=== PATIENT | female | born 1950 | race Caucasian/White ===

== ENCOUNTER 2022-12-31 07:24 | Observation (INO) ==
--- NOTE | 2022-12-03 11:20 | PAT Medication Instructions ---
Medication Instructions Date of Service December 03, 2022 Home Medications Medication Instructions Recorded diclofenac sodium 75 mg 75 mg PO BID PRN pain #60 tabs 10/30/22 tablet,delayed release diclofenac sodium 75 mg tablet,delayed release 75 mg PO BID PRN pain levothyroxine 88 mcg tablet (Synthroid) 88 mcg PO QAM ASK your surgeon for instructions diclofenac sodium 75 mg tablet,delayed release 75 mg PO BID PRN pain Take morning of surgery With a small sip of water, OTHERWISE NOTHING TO EAT OR DRINK AFTER MIDNIGHT: levothyroxine 88 mcg tablet (Synthroid) 88 mcg PO QAM Other Notes If you have any questions please call us at [phone] or [phone] or [phone] or [phone]
--- NOTE | 2022-12-04 14:29 | Anesthesiology Consultation ---
Date of Service December 04, 2022 Assessment & Plan (1) Encounter for pre-operative examination: - awaiting cardiology pre-operative evaluation, Dr. Ranjith Cardoza PA physicians group and carotid, Holter monitor reports. - Case discussed in detail with Dr. Daniel who advised patient will need cardiology pre-operative evaluation. Surgeon's office made aware. - cardiology office visit 09/04/22: "...episode of syncope in 01/2022...vision was blurry before this happened..."out: for a couple minutes...could not get a pulse during episode...felt weak after the episode the next day...declines stress test...declines week longer monitor at this time...repeat echo in 1 year..." - Outpatient joint assessment: Patient is currently scheduled for inpatient pathway. If re-evaluated and patient/surgeon requests outpatient pathway, patient is not recommended candidate for outpatient joint program from anesthesia standpoint. Chart Review Chart Review: Pending: Refer to Additional Notes / Consult section and Patient seen in Pre Admission Testing Teaching & Discussion Pre-Anesthesia Teaching/Discussion Notes: Instructed NPO after midnight before surgery, except medications with 15 cc of water. Medication instructions provided according to the PAT guidelines. History Surgery Operation Date: 12/31/22 09:20 Proposed Procedures p Left Anterior Total Hip Arthroplasty - Irineo Byers DO Height/Weight Height: 5 ft 4 in Weight: 61.1 kg Allergies Allergy/AdvReac Type Severity Reaction Status Date / Time No Known Allergies Allergy Verified 11/28/22 11:06 Medications Home Medications Medication Instructions Recorded Confirmed Last Taken diclofenac sodium 75 mg 75 mg PO BID PRN pain #60 tabs 10/30/22 11/28/22 Unknown tablet,delayed release levothyroxine 88 mcg tablet 88 mcg PO QAM 11/28/22 11/28/22 Unknown (Synthroid) 3-in-1 Commode #1 ea 12/04/22 12/04/22 Unknown diclofenac sodium 75 mg 75 mg PO BID #60 tabs 12/04/22 12/04/22 Unknown tablet,delayed release Past Medical History Medical History (Updated 12/04/22 @ 15:12 by Rosa Lux PA-C) History of pelvic fracture Remote hx 9+ years ago, no surgery > "healed" Hx of migraines during efraín-menopause Hx of syncope 01/2022 Hx of thyroid cancer Dx 2007, s/p total thyroidectomy + Iodine tx Hypothyroidism Osteopenia Pulmonary hypertension mild with RVSP 41 mmHg per 2022 echo Patient denies h/o stroke, seizures, heart attack, heart failure, DM, HTN, blood clots/DVTs or blood transfusions. Exercise / Class Metabolic Activity II 4-5 Yardwork/Stairs/Walk up hill (denies chest discomfort or shortness of breath with 1 FOS, ambulates with cane) Past Surgical History Surgical History History of esophagogastroduodenoscopy (EGD) Hx of bilateral cataract extraction Hx of colonoscopy Hx of oral surgery dental implant x1 Hx of tonsillectomy Hx of total thyroidectomy 2007 Hx of tubal ligation Nausea after anesthesia Past Anesthesia History No Hx of Anesthesia Complications and No Family Hx of Anesthesia Complications History of PONV History of PONV (denies needing scop patch, states does well with IV pre-dosing) and Hx of Motion Sickness Social History Smoking Status: Former smoker Do You Dip or Chew Tobacco: No Smoking End Date: 45 years ago-social smoker Hx Alcohol Use: Yes alcohol intake frequency: holidays/special occasions only Hx Substance Use: No substance use type: does not use Review of Systems Snoring, denies witnessed apneas. Patient denies chest pain, shortness of breath, dyspnea on exertion, reflux, fever, chills, cough, wheezing, presyncope, or palpitations. Physical Exam Vital Signs Vitals BP 109/74 P 65 TEMP 98.1 SP02 96% on RA RESP 18 Physical Patient resting comfortably in chair in no acute distress, alert and oriented, responding appropriately throughout visit Full cervical extension range of motion without pain TMD 3.5 finger breadths Mallampati Score 3 Dentition: implant-left lower side and several caps/crowns, denies chipped or loose teeth, or bridges Lungs: normal respiratory effort. Good air movement, clear throughout to auscultation, no adventitious breath sounds Cardiac: regular rate and rhythm, no murmurs noted Carotid arteries: negative bruit bilat Lab Results Anesthesia Preop Results Results Anesthesia Widget: WBC 5.17 K/ul (4.8-10.8) 12/04/22 Hgb 12.1 g/dl (12.0-16.0) 12/04/22 Hct 36.3 % (37.0-47.0) L 12/04/22 Plt 144 K/uL (130-400) 12/04/22 Na 139 mmol/L (136-145) 12/04/22 K 5.0 mmol/L (3.5-5.1) 12/04/22 Cl 104 mmol/L (98-107) 12/04/22 CO2 32 mmol/L (21-32) 12/04/22 BUN 30 mg/dl (6-23) H 12/04/22 Creat 0.72 mg/dl (0.6-1.2) 12/04/22 Glucose Level 95 mg/dl (70-99(Fasting)) 12/04/22 PT 11.2 Seconds (9.0-12.0) 12/04/22 PTT 28.9 Seconds (21.0-31.0) 12/04/22 INR 1.0 (0.9-1.1) 12/04/22 HA1c 5.5 % (4.5-5.6) 10/12/22 Blood Type A Positive 12/04/22 Antibody Screen NEGATIVE 12/04/22 Testing Electrocardiogram Date: 03/02/22 NSR, rate 65 bpm Chest X-Ray Date: 12/04/22 No acute cardiopulmonary findings Echocardiogram Date: 08/23/22 EF 55-60% Normal LV wall motion Mildly dilated RA Mild aortic regurgitation Mild tricuspid regurgitation Mild pulmonary hypertension RVSP 41 mmHg Mild pulmonic regurgitation Mildly dilated ascending aorta
[~2022-12-31 07:24] MED LIST: ACETAMINOPHEN 500 MG TAB PO SCH; BUPIVACAINE 0.5 % 5 MG/1 ML PF 10ML VIAL ONE; FAMOTIDINE 20 MG TAB PO SCH; GABAPENTIN 300 MG CAP PO SCH; LR 500ML BOLUS, THEN 15ML/HR IV SCH; LR 60ML/HR IV SCH; METOCLOPRAMIDE HCL 10 MG TABLET PO SCH; MIDAZOLAM HCL 1 MG/ML 2ML VIAL ONE; ORTHO JOINT MIX INFIL SCH; TRANEXAMIC ACID 1,000 MG **IV Intra-op IV SCH; TRANEXAMIC ACID 1,000 MG **IV Pre-op IV SCH; ceFAZolin 2000MG 2,000 MG/15 ML SYR IV SCH; dexAMETHasone**PF** 10 MG/ML VIAL IV SCH
[2022-12-31] MEDS ORDERED: ONDANSETRON INJ 2 MG/ML 2 ML VIAL ONE (08:07)
[2022-12-31] MEDS ORDERED: LIDOCAINE 2% 2 ML VIAL/AMP(20MG/ML) INFIL ONE (08:07)
[2022-12-31] MEDS ORDERED: KETOROLAC 30 MG/ML VIAL ONE (08:07)
[2022-12-31] MEDS ORDERED: PROPOFOL IV EMULSION 10 MG/ML 20 ML VIAL IV ONE (08:07)
--- NOTE | 2022-12-31 08:07 | History & Physical Bridge Note ---
Date of Service December 31, 2022 History & Physical Bridge Note I have examined the patient, reviewed the History & Physical and in the interval since the performance of the History & Physical I have noted the following changes of clinical significance: no changes noted
[2022-12-31] MEDS ORDERED: ORTHO JOINT ANESTHETIC ONE (08:32)
[2022-12-31] MEDS ORDERED: ONDANSETRON INJ 2 MG/ML 2 ML VIAL IV PRN ×2 (08:37→14:02)
[2022-12-31] MEDS ORDERED: ATROPINE SULFATE 0.1 MG/ML 10ML SYR IV PRN (08:37)
[2022-12-31] MEDS ORDERED: ePHEDrine sulfate 50 MG/ML AMP IV PRN (08:37)
[2022-12-31] MEDS ORDERED: fentaNYL citrate PF 100 MCG/2 ML VIAL IV PRN (08:37)
--- NOTE | 2022-12-31 10:17 | Operative Report ---
PG Post Operative Report Pre & Post Diagnosis Operation Date: 12/31/22 09:00 Pre-Op Diagnosis: Left Hip Degenerative Joint Disease Post-Op Diagnosis: Left Hip Degenerative Joint Disease I identified the patient and participated in the time-out.: Yes Procedure Operation Date: 12/31/22 09:00 Actual Procedures p Left Anterior Total Hip Arthroplasty, Uncemented(Left) - Irineo Byers DO Surgeon Irineo Byers DO Corporate Staff [employer]ant Irineo Mcdonough PA-C Estimated Blood Loss 250 Findings Consistent with Post-Op Diagnosis Specimens Left femoral head Description of Procedure Implants used I used a ZimmerBiomet total hip arthroplasty system with a size 6.5 high offset Avenir Complete stem, a 50 mm G7 cup with a 25mm screw, an E1 polyethylene liner, a 36 mm ceramic head with a +3.5 neck. Yanira arrived at the hospital for the above procedure. She was seen in the preoperative holding area and the operative extremity was identified and signed. She was given a spinal anesthetic, a preoperative antibiotic, and TXA. She was then taken back to the operating room and laid on the table in the supine position. She was given basic sedation. The operative leg was secured to a Puristst leg positioner. The hip was then prepped and draped in sterile fashion. A timeout was done and the patient and the operative extremity was pro perly identified. An anterior approach was used. Dissection was taken down through the fascia and the tensor muscle belly was retracted laterally and the rectus was retracted medially. The circumflex vessels were identified and ligated. The capsule was then incised and tagged for later repair. The femoral neck was then cut and the femoral head was removed. The acetabulum was exposed. Time was spent doing a complete circumferential labral release. Sequential reaming of the acetabulum up to a size 49 reamer was done. Final reamings were done under fluoroscopy to ensure appropriate version. A Biomet 50 mm G7 cup was then impacted into place. A single 25 mm screw was placed. The E1 polyethylene liner was then snapped into place. Surrounding soft tissues were then injected with 100 cc of an orthopedic pain control cocktail. The proximal femur was then exposed. Sequential broaching up to a size 6.5 broach was done. Off that broach a size 36 head with a +3.5 neck was trialed. The hip was reduced and fluoroscopic images showed anatomic alignment of the implants in acceptable length. The broach was removed. The final size 6.5 high offset Avenir Complete stem was then impacted into place. A ceramic 36 mm head with a +3.5 neck was then impacted onto the stem and the hip was reduced. Final fluoroscopic images showed anatomic alignment of the hip. The capsule was then closed with #1 Vicryl suture. A dilute betadyne lavage was then done for 3 minutes. The joint was then irrigated with normal saline solution. The fascia was closed with #1 PDS suture. Skin was closed with 2-0 Vicryl, keven, and a Silverlon dressing. She was then transferred to a hospital bed and taken to the post anesthesia care unit in stable condition. She tolerated the procedure well. Irineo Mcdonough PA-C, was present for the entire procedure. He was critical for patient positioning, prepping, draping, retraction exposure, wound closure and application of sterile dressing. I attest to the content of the Intraoperative Record and any orders documented therein. Any exceptions are noted below.
--- NOTE | 2022-12-31 10:34 | Fluoroscopy Report ---
FL hip LT 1V CLINICAL HISTORY: LEFT ANTERIOR THAleft hip arthroplasty COMPARISON STUDY: 10/30/2022 FLUOROSCOPY TIME: 13.6 seconds FLUOROSCOPY IMAGES: 1 EXPOSURE DOSE: 1.08 mGy FINDINGS: Left hip arthroplasty demonstrates satisfactory alignment. Expected postoperative soft tiss ue swelling with deep tissue air. No acute fracture, dislocation or unexpected opaque foreign body. IMPRESSION: Fluoroscopic assistance of the above. ACT 112: Negative or not required by law. Electronically signed by: Matt Baker M.D. 12/31/2022 10:33 AM
--- NOTE | 2022-12-31 11:04 | XRay Report ---
XR hip 1V LT w pelvis CLINICAL HISTORY: IN PACU - Post Surgical TECHNIQUE: 1 view of the left hip and single frontal view of the pelvis were obtained. Comparison: Comparison is made to left hip radiograph 10/30/2022 FINDINGS: Patient is status post total hip arthroplasty with expected postsurgical changes including soft tissu e swelling and subcutaneous emphysema. Incidental note is made of severe osteoarthritic disease in t he right hip. IMPRESSION: Expected postoperative appearance status post placement of total hip arthroplasty. ACT 112: Negative or not required by law. Electronically signed by: Lamin Alvarado M.D. 12/31/2022 11:03 AM
--- NOTE | 2022-12-31 12:05 | Anesthesiology Progress Note ---
Date of Service December 31, 2022 Anesthesia Post Procedure Vital Signs Vital Signs: Temp Pulse Resp BP Pulse Ox O2 Del Method O2 Flow Rate 12/31/22 11:55 36.3 C L 66 14 110/63 97 Room Air 12/31/22 11:45 64 14 114/64 97 Room Air 12/31/22 11:35 64 16 108/64 97 Room Air 12/31/22 11:25 68 22 112/65 97 Room Air 12/31/22 11:15 64 14 103/59 L 99 Room Air 12/31/22 11:05 68 12 108/63 96 Room Air 12/31/22 10:55 64 12 107/62 100 Room Air 12/31/22 10:45 72 14 122/65 100 Oxymask 4 12/31/22 10:35 36.6 C 76 12 110/70 100 Oxymask 8 12/31/22 07:50 36.5 C 73 18 126/71 96 Room Air Pain Intensity Left Hip: Pain Intensity: 3 Transfer of Care Handoff Completed per policy Notes Mental Status: alert / awake / arousable Patient Amnestic to Procedure: Yes Nausea / Vomiting: adequately controlled Pain: adequately controlled Airway Patency, RR, SpO2: stable & adequate BP & HR: stable & adequate Hydration State: stable & adequate Neuraxial Anesthesia: was administered and sensory block is resolving Anesthetic Complications: no major complications apparent and Pt Satisfied with anesthetic care
[2022-12-31] MEDS ORDERED: MAGNESIUM HYDROXIDE SUSP 30 ML UDC PO PRN (14:02)
[2022-12-31] MEDS ORDERED: NALOXONE HCL 0.4 MG/1 ML VIAL/CARP IV PRN (14:02)
[2022-12-31] MEDS ORDERED: bisacodyL 10 MG SUPP PR PRN (14:02)
[2022-12-31] MEDS ORDERED: oxyCODONE HCL IR 5 MG TAB (IMMEDIATE RELEASE) PO PRN (14:02)
[2022-12-31] MEDS ORDERED: METOCLOPRAMIDE HCL INJ 5 MG/ML 2 ML VIAL IV PRN (14:02)
[2022-12-31] MEDS ORDERED: HYDROmorphone INJ 0.5 MG/0.5 ML SYR IV PRN (14:02)
[2022-12-31] MEDS: SODIUM CHLORIDE 0.9% 1,000 ML IV SCH ×2 (14:28→23:48)
[2022-12-31] MEDS: KETOROLAC TROMETHAMINE 15 MG/ML VIAL IV SCH ×2 (15:07→21:49)
[2022-12-31] MEDS: ACETAMINOPHEN 500 MG TAB PO SCH ×2 (17:07→23:49)
[2022-12-31] MEDS: ceFAZolin 2000MG 2,000 MG/15 ML SYR IV SCH ×2 (19:25→23:51)
[2022-12-31] MEDS ORDERED: SENNA 8.6 MG TAB PO SCH (21:00)
[2022-12-31] MEDS: ASPIRIN 81 MG ECTAB PO SCH (21:49)
[2022-12-31] MEDS: DOCUSATE SODIUM 100 MG CAP PO SCH (21:49)
[2023-01-01] MEDS: KETOROLAC TROMETHAMINE 15 MG/ML VIAL IV SCH ×2 (02:18→08:07)
[2023-01-01] MEDS ORDERED: LEVOTHYROXINE SODIUM 88 MCG TABLET PO SCH (06:30)
--- NOTE | 2023-01-01 06:57 | Orthopedic Progress Note ---
Date of Service January 01, 2023 Assessment & Plan (1) Status post left hip replacement: Overall she is doing very well. She is not having much pain in the left hip. She will be seen by physical therapy today for ambulation and range of motion exercises. She is on aspirin for DVT prophylaxis. She can be discharged home later today. She will follow-up with orthopedics in 2 weeks. Nayeli Doyle was seen and examined at bedside this morning. Overall she is doing very well pending much pain in the left hip. She has been up and ambulating to the bathroom. She has no complaints.. Review of Systems All systems reviewed & are unremarkable except as noted in HPI & below. Physical Exam On physical examination left hip, the dressings are clean and dry. Her leg is out full extension. She has active dorsiflexion plantarflexion of her left ankle.. Results & Data Results & Data Laboratory Results . Diagnostic Findings Postoperative x-rays of the left hip show the prosthesis to be in anatomic alignment without any evidence of fracture complication, or loosening.. PG Care Time/CCT Total # of Minutes Spent Total Time Spent with Patient: Total time spent is greater than 50% in coordination of care (as documented) at patient's floor/unit and/or counseling patient: Coding Level of Care Code 73726 Post Operative Follow-Up Diagnoses Status post left hip replacement Z96.642
--- NOTE | 2023-01-01 06:58 | Discharge Summary ---
Date of Service January 01, 2023 Principal Diagnosis Same as "Discharge Diagnosis" noted below under Discharge Instructions. Discharge Exam On physical examination left hip, the dressings are clean and dry. Her leg is out full extension. She has active dorsiflexion plantarflexion of her left ankle.. Discharge Data Procedures Performed Operation Date: 12/31/22 09:00 Actual Procedures p Left Anterior Total Hip Arthroplasty, Uncemented(Left) - Irineo Byers DO Ordered Studies 12/31/22 FL hip LT 1V Routine Hospital Course (1) Status post left hip replacement: On December 31, [address] [facility] and underwent a left hip replacement without complication. She had a spinal anesthetic. Postoperatively she was started on aspirin for DVT prophylaxis and transferred to the general orthopedic floors. Her hospital course was uneventful. On postop day #1, her vital signs were stable and her pain was well controlled. She was able to participate well with physical therapy doing ambulation and range of motion exercises. She was then discharged home. She will follow-up with orthopedics in 2 weeks. PG Care Time/CCT Total # of Minutes Spent Total Time Spent with Patient: Total time spent is greater than 50% in coordination of care (as documented) at patient's floor/unit and/or counseling patient: Discharge Plan Discharge Items Patient Disposition: Home - Home Health Services Reason For Visit: Left Hip Degenerative Joint Disease Discharge Diagnosis: Left hip replacement Activity: Per Instructions section Non-emergency contact: Surgeon Call non-emergency contact if: your wound has increased redness and your wound has increased drainage Follow-up/Referrals: Mateo Reed [Primary Care Provider] - Diet: Regular Addtl Attending Provider Instructions: Activity and Therapy Recommendations: * If you are using [facility] then therapy will be provided at your home until they feel you have accomplished all of your goals. * If you are using [facility] then Physical Therapy will be provided until they feel you are ready to start Outpatient Physical Therapy. * If you are not using home therapy then Outpatient Physical Therapy should start about 3-5 days from your day of surgery. Therapy will last about 6-10 weeks * You were shown a series of exercises in the hospital. Do these exercises three times each day including the exercises you were shown in physical therapy. * Get up and walk several times each day.~ For the first four weeks, try not to stand or walk for more than one hour at a time. If you do stand or walk for more than one hour, you will not hurt anything, but your leg will likely swell.~~ * As you feel comfortable, you may change from the walker or crutches to a cane and~then to independent walking. Medications: * Narcotic You will likely be sent home from the hospital with a prescription for the narcotic pain medication that worked best throughout your stay. * Aspirin Most patients will be required to take Aspirin 81mg twice a day for 6 weeks after surgery. This is obtained [id number] and a prescription is not necessary. * Cefadroxil -take the antibiotic twice a day for 10 days to help prevent infections. * Other medications may be prescribed for specific circumstances. If you have any questions, please call the office at . * Resume previous home medications unless otherwise instructed TEDs/Elastic Stockings: The white elastic stockings help limit swelling and prevent blood clots from forming in your legs. The more you wear them, the more they work. Wear them for six weeks. Dressing Care: Leave the Silverlon dressing in place for 7 days. After 7 days you may remove the dressing. If the incision is not draining then you may leave the keven open to air. If there is a little bit of drainage or if the keven are getting stuck on your clothing then cover the incision with a dry dressing. The keven will be removed at your 2 week follow-up appointment. Showering: You may shower with the Silverlon dressing in place. Do not let the shower spray hit the dressing directly. Pat the Silverlon dressing dry. If the dressing becomes wet underneath, then simply remove the dressing. Keep the incision dry until you are 7 days out from the day of surgery. After 7 days you may remove the Silverlon dressing and shower with the keven exposed. Let soapy water run over the keven and pat them dry. Do not scrub or soak the incision. Things To Watch For: * Drainage from the incision site that occurs more than one week after your surgery. * Increased redness at the incision site. * Fever above 102 degrees Fahrenheit. * Unusual chest pain or shortness of breath. * Call [facility] at with any of the above problems Follow-Up Visit: Follow-up with Dr. Byers's PA (Irineo Mcdonough) 2-3 weeks after your day of fili joce. He will remove your keven and answer any questions. If you have any additional questions or concerns, Dr Byers is usually in the office at the same time and will be available An appointment was probably scheduled when you signed-up for surgery in the office. If you have any questions call Office Instructions: More detailed instructions as well as Frequently Asked Questions were provided in a folder by our office when you signed-up for surgery. Please review these instructions when you get home. If you have any further questions or concerns, please feel free to call the office at [phone] Pending Studies at Discharge: No Stand-Alone Forms: [facility] Medications and DC Order Prescriptions: New cefadroxil 500 mg capsule 500 mg PO BID 10 Days Qty: 20 0RF tramadol 50 mg tablet 50 mg PO Q6H PRN (Reason: pain) Qty: 30 0RF aspirin 81 mg Tablet,Delayed Release (Dr/Ec) 81 mg PO BID 42 Days Qty: 0 0RF Continued (DME) Wheeled Walker Mis See Rx Instructions .MEDSUPPLY Qty: 1 0RF Rx Instructions: As directed (DME) 3-in-1 Commode Misc See Rx Instructions .MEDSUPPLY Qty: 1 0RF Rx Instructions: As directed diclofenac sodium 75 mg tablet,delayed release (DR/EC) 75 mg PO BID Qty: 60 0RF levothyroxine [Synthroid] 88 mcg tablet 88 mcg PO QAM Admission Data Admit Date/Time: 12/31/22 10:35 Attending Provider: Irineo Byers Admit Provider: Irineo Byers Primary Care Provider: Mateo Reed
[2023-01-01] MEDS ORDERED: dexAMETHasone 4 MG TAB PO SCH (08:00)
[2023-01-01] MEDS: DOCUSATE SODIUM 100 MG CAP PO SCH (08:07)
[2023-01-01] MEDS: ASPIRIN 81 MG ECTAB PO SCH (08:07)
[2023-01-01] MEDS: ACETAMINOPHEN 500 MG TAB PO SCH (08:07)
[2023-01-01] MEDS ORDERED: MULTIVITAMIN TAB PO SCH (09:00)
== END 2023-01-01 11:05 | disposition home health service (06) ==
LOC: ASU 07:24 → 3N 07:24

== ENCOUNTER 2023-04-29 07:49 | Observation (INO) ==
--- NOTE | 2023-04-04 14:49 | PAT Medication Instructions ---
Medication Instructions Date of Service April 04, 2023 Home Medications Medication Instructions Recorded 3-in-1 Commode #1 ea 12/04/22 diclofenac sodium 75 mg 75 mg PO BID #60 tabs 12/04/22 tablet,delayed release Wheeled Walker #1 ea 12/19/22 tramadol 50 mg tablet 50 mg PO Q6H PRN pain #30 tabs 01/01/23 amoxicillin 500 mg tablet 2,000 mg (4 x 500 mg) PO ONCE #4 02/18/23 tabs levothyroxine 88 mcg tablet (Synthroid) 88 mcg PO QAM diclofenac sodium 75 mg tablet,delayed release 75 mg PO BID tramadol 50 mg tablet 50 mg PO Q6H PRN amoxicillin 500 mg tablet 2,000 mg (4 x 500 mg) PO ONCE naproxen sodium 220 mg tablet (Aleve) 220 mg PO Q8H PRN Continue as directed amoxicillin 500 mg tablet 2,000 mg (4 x 500 mg) PO ONCE ASK your surgeon for instructions diclofenac sodium 75 mg tablet,delayed release 75 mg PO BID naproxen sodium 220 mg tablet (Aleve) 220 mg PO Q8H PRN Take morning of surgery With a small sip of water, OTHERWISE NOTHING TO EAT OR DRINK AFTER MIDNIGHT: levothyroxine 88 mcg tablet (Synthroid) 88 mcg PO QAM tramadol 50 mg tablet 50 mg PO Q6H PRN(if needed) Take evening before surgery tramadol 50 mg tablet 50 mg PO Q6H PRN(if needed) Other Notes If you have any questions please call us at [phone] or [phone] or [phone] or [phone]
--- NOTE | 2023-04-09 13:26 | Anesthesiology Consultation ---
Date of Service April 09, 2023 Assessment & Plan (1) Encounter for pre-operative examination: Chart Review Chart Review: Acceptable Risk for Surgery and Patient seen in Pre Admission Testing - Patient is NOT an ideal OPJ candidate Per PAT appt on 04/09/23, mild residual cough. No recent illness/disease exposures or recent illness/disease positive tests. Will leave to surgeon's discretion if preop Covid testing needed. No further testing needed from anesthesia standpoint at this time as symptoms onset >11 days and improving. Patient educated to contact PAT if cough not resolved by DOS Anterior SAPPHIRE 12/31/22= Done under SAB Per cardio note 12/19/2022 (prior to 12/31/22 SAPPHIRE) = patient cleared at low cardiac risk for upcoming surgery. Teaching & Discussion Pre-Anesthesia Teaching/Discussion Notes: Instructed NPO after midnight before surgery,except medications with 15 cc of water. Medication instructions provided according to the PAT guidelines. History Surgery Operation Date: 04/29/23 08:00 Proposed Procedures p Right Anterior Total Hip Arthroplasty - Irineo Byers DO Height/Weight Height: 5 ft 4 in Weight: 58.5 kg Allergies Allergy/AdvReac Type Severity Reaction Status Date / Time No Known Allergies Allergy Verified 04/04/23 12:19 Medications Home Medications Medication Instructions Recorded Confirmed Last Taken levothyroxine 88 mcg tablet 88 mcg PO QAM 11/28/22 04/04/23 12/31/22 01:30 (Synthroid) 3-in-1 Commode #1 ea 12/04/22 12/04/22 Unknown diclofenac sodium 75 mg 75 mg PO BID #60 tabs 12/04/22 04/04/23 1 Week Ago tablet,delayed release ~12/24/22 Wheeled Walker #1 ea 12/19/22 Unknown tramadol 50 mg tablet 50 mg PO Q6H PRN pain #30 tabs 01/01/23 04/04/23 Unknown amoxicillin 500 mg tablet 2,000 mg (4 x 500 mg) PO ONCE #4 02/18/23 04/04/23 Unknown tabs naproxen sodium 220 mg tablet 220 mg PO Q8H PRN Pain 04/04/23 04/04/23 Unknown (Aleve) Past Medical History Medical History Hx of migraines during efraín-menopause no recent issues Hx of syncope 01/2022 - possibly related to dehydration - no issues since Hx of thyroid cancer Dx 2007, s/p total thyroidectomy + Iodine tx Hypothyroidism Osteopenia Pulmonary hypertension mild with RVSP 41 mmHg per 2022 echo Exercise / Class Metabolic Activity II 4-5 Yardwork/Stairs/Walk up hill (one flight of stairs - no chest pain or SOB ) Past Surgical History Surgical History History of esophagogastroduodenoscopy (EGD) History of total hip arthroplasty left Hx of bilateral cataract extraction Hx of colonoscopy Hx of oral surgery dental implant x1 Hx of tonsillectomy Hx of total thyroidectomy 2007 Hx of tubal ligation Nausea after anesthesia Past Anesthesia History No Hx of Anesthesia Complications (with exception to nausea post op - no issues with 12/2022 surgery ) and No Family Hx of Anesthesia Complications History of PONV History of PONV and Hx of Motion Sickness Social History Smoking Status: Former smoker Do You Dip or Chew Tobacco: No Smoking End Date: age 34 Hx Alcohol Use: Yes alcohol intake frequency: holidays/special occasions only Hx Substance Use: No substance use type: does not use Review of Systems Mild residual dry cough (cold approximately three weeks ago). Improving Patient denies chest pain, shortness of breath, dyspnea on exertion, reflux, wheezing, palpitations. No hx of seizures, stroke, MA, apnea/snoring. No hx of blood clots or blood transfusions Physical Exam Vital Signs VITALS BP 101/58 P 73 TEMP 97.9 SP02 94% RESP 16 Constitutional no acute distress ENMT Mouth: no TMJ clicking Thyromental Distance: > or= 3.5 Finger Breadths (3.5) Mallampati Class: II Missing molars Left side implant permanent Caps and crowns to side teeth and molars Neck neck extension not limited Respiratory normal respiratory effort; no respiratory distress Auscultation: lungs clear to auscultation bilaterally; no wheezes Cardiovascular Rate/Rhythm: regular rate and regular rhythm Heart Sounds: no murmur Vessels: no carotid bruit Musculoskeletal Spine: no pain with cervical ROM Extremities: extremities normal to inspection Psychiatric Orientation: alert Lab Results Anesthesia Preop Results Results Anesthesia Widget: WBC 5.32 K/ul (4.8-10.8) 04/09/23 Hgb 12.1 g/dl (12.0-16.0) 04/09/23 Hct 36.5 % (37.0-47.0) L 04/09/23 Plt 182 K/uL (130-400) 04/09/23 Na 136 mmol/L (136-145) 04/09/23 K 4.1 mmol/L (3.5-5.1) 04/09/23 Cl 101 mmol/L (98-107) 04/09/23 CO2 30 mmol/L (21-32) 04/09/23 BUN 23 mg/dl (6-23) 04/09/23 Creat 0.67 mg/dl (0.6-1.2) 04/09/23 Glucose Level 148 mg/dl (70-99(Fasting)) H 04/09/23 PT 11.3 Seconds (9.0-12.0) 04/09/23 PTT 28 Seconds (21-31) 04/09/23 INR 1.0 (0.9-1.1) 04/09/23 Blood Type A Positive 04/09/23 Antibody Screen NEGATIVE 04/09/23 Testing Electrocardiogram Date: 04/09/23 Findings: + NSR @ (60bpm) Normal EKG per cardio Chest X-Ray Date: 12/04/22 No acute cardiopulmonary findings Echocardiogram Date: 08/23/22 EF 55-60% Normal LV wall motion Mildly dilated RA Mild aortic regurgitation Mild tricuspid regurgitation Mild pulmonary hypertension RVSP 41 mmHg Mild pulmonic regurgitation Mildly dilated ascending aorta Other Testing Cardiac event monitor 03/05/22 HR 53 min, 77 average, 145 max Ventricular ectopic activity 10 beats 3 in triplet. 7 single PVCs 1 hour 40 minutes tachycardia max 136 bpm SVT 126 beats, 104 were single PACs
--- NOTE | 2023-04-24 07:48 | History & Physical Report ---
Date of Service April 24, 2023 Assessment & Plan (1) Osteoarthritis of right hip: We will proceed with a right anterior total of arthroplasty. Postoperatively she will be started on aspirin for DVT prophylaxis and kept overnight in the hospital for postop medical management. She plans to have the hospital set up home health before discharge. History of Present Illness Chief Complaint: Osteoarthritis of the right hip. Primary Care Provider: Mateo C. Derek Doyle is a pleasant 72-year-old female who underwent a left hip replacement in December 2022. She has done very well with that. Unfortunately she is dealing with a lot of right hip pain. X-rays and clinical examination been diagnostic for advanced osteoarthritis of the right hip. After failing conservative treatment, she has elected to proceed with a right total hip arthroplasty.. Allergies Allergy/AdvReac Type Severity Reaction Status Date / Time No Known Allergies Allergy Verified 04/04/23 12:19 Home Medications Medication Instructions Recorded Confirmed Type levothyroxine 88 mcg tablet 88 mcg PO QAM 11/28/22 04/04/23 History (Synthroid) 3-in-1 Commode #1 ea 12/04/22 12/04/22 Rx diclofenac sodium 75 mg 75 mg PO BID #60 tabs 12/04/22 04/04/23 Rx tablet,delayed release Wheeled Walker #1 ea 12/19/22 Rx tramadol 50 mg tablet 50 mg PO Q6H PRN pain #30 tabs 01/01/23 04/04/23 Rx amoxicillin 500 mg tablet 2,000 mg (4 x 500 mg) PO ONCE #4 02/18/23 04/04/23 Rx tabs naproxen sodium 220 mg tablet 220 mg PO Q8H PRN Pain 04/04/23 04/04/23 History (Aleve) Past Med/Surg History Medical History Pulmonary hypertension mild with RVSP 41 mmHg per 2022 echo Osteopenia Hx of syncope 01/2022 - possibly related to dehydration - no issues since Hx of migraines during efraín-menopause no recent issues Hx of thyroid cancer Dx 2007, s/p total thyroidectomy + Iodine tx Hypothyroidism Surgical History History of total hip arthroplasty left History of esophagogastroduodenoscopy (EGD) Hx of colonoscopy Hx of tubal ligation Hx of tonsillectomy Hx of bilateral cataract extraction Hx of oral surgery dental implant x1 Hx of total thyroidectomy 2007 Nausea after anesthesia Social History Smoking Status: Former smoker Tobacco Type: Cigarettes Second Hand Exposure: No; Do You Dip or Chew Tobacco: No; Hx Alcohol Use: Yes Hx Substance Use: No Preferred Language: Jordanian Communication Ability: Effective Pin Or Clip Fastener Required: No Beliefs That Will Affect Care: None Current Living Situation: Spouse Feels Safe at Home: Yes Assistive Devices: Glasses Review of Systems All systems reviewed & are unremarkable except as noted in HPI & below. Physical Exam On physical examination of the right hip, she has decreased range of motion. She has pain with forced internal and external rotation.. Constitutional WD/WN, vitals as above Eyes PERRL, conjunctivae normal, anicteric sclerae ENMT external ear and nose normal, oropharynx normal Neck trachea midline, no thyromegaly Respiratory normal respiratory effort Cardiovascular RRR, no murmur, no edema Gastrointestinal (Abdomen) normal bowel sounds, soft, nontender, no hepatosplenomegaly Psychiatric A+Ox3, euthymic affect Results & Data Results & Data Laboratory Results . Diagnostic Findings X-rays of the right hip show advanced osteoarthritis with joint space narrowing, osteophyte formation, and exue-va-rccy articulation. PG Care Time/CCT Total # of Minutes Spent Total Time Spent with Patient: Total time spent is greater than 50% in coordination of care (as documented) at patient's floor/unit and/or counseling patient: Coding Level of Care Code None Diagnoses Osteoarthritis of right hip M16.11
[~2023-04-29 07:49] MED LIST changes: -ACETAMINOPHEN 500 MG TAB PO SCH; -FAMOTIDINE 20 MG TAB PO SCH; -GABAPENTIN 300 MG CAP PO SCH; -LR 500ML BOLUS, THEN 15ML/HR IV SCH; -LR 60ML/HR IV SCH; -METOCLOPRAMIDE HCL 10 MG TABLET PO SCH; -MIDAZOLAM HCL 1 MG/ML 2ML VIAL ONE; -ORTHO JOINT MIX INFIL SCH; -TRANEXAMIC ACID 1,000 MG **IV Intra-op IV SCH; -TRANEXAMIC ACID 1,000 MG **IV Pre-op IV SCH; -ceFAZolin 2000MG 2,000 MG/15 ML SYR IV SCH; -dexAMETHasone**PF** 10 MG/ML VIAL IV SCH
[2023-04-29] MEDS ORDERED: MIDAZOLAM HCL 1 MG/ML 2ML VIAL ONE (08:42)
[2023-04-29] MEDS: LR 60ML/HR IV SCH (08:47)
[2023-04-29] MEDS: dexAMETHasone**PF** 10 MG/ML VIAL IV SCH (08:47)
[2023-04-29] MEDS: LR 500ML BOLUS, THEN 15ML/HR IV SCH (08:47)
[2023-04-29] MEDS: GABAPENTIN 300 MG CAP PO SCH (08:48)
[2023-04-29] MEDS: FAMOTIDINE 20 MG TAB PO SCH (08:48)
[2023-04-29] MEDS: ACETAMINOPHEN 500 MG TAB PO SCH ×2 (08:48→17:00)
--- NOTE | 2023-04-29 09:09 | History & Physical Bridge Note ---
Date of Service April 29, 2023 History & Physical Bridge Note I have examined the patient, reviewed the History & Physical and in the interval since the performance of the History & Physical I have noted the following changes of clinical significance: no changes noted
[2023-04-29] MEDS ORDERED: DROPERIDOL 5 MG/2 ML VIAL IV PRN (09:38)
[2023-04-29] MEDS ORDERED: ATROPINE SULFATE 0.1 MG/ML 10ML SYR IV PRN (09:38)
[2023-04-29] MEDS ORDERED: ePHEDrine sulfate 50 MG/ML AMP IV PRN (09:38)
[2023-04-29] MEDS ORDERED: fentaNYL citrate PF 100 MCG/2 ML VIAL IV PRN (09:38)
[2023-04-29] MEDS: TRANEXAMIC ACID 1,000 MG **IV Pre-op IV SCH (09:39)
[2023-04-29] MEDS: ceFAZolin 2000MG 2,000 MG/15 ML SYR IV SCH (10:00)
[2023-04-29] MEDS ORDERED: LIDOCAINE 2% 2 ML VIAL/AMP(20MG/ML) INFIL ONE (10:17)
[2023-04-29] MEDS ORDERED: GLYCOPYRROLATE 0.2 MG/ML VIAL ONE (10:17)
[2023-04-29] MEDS ORDERED: PROPOFOL IV EMULSION 10 MG/ML 20 ML VIAL IV ONE (10:17)
[2023-04-29] MEDS ORDERED: ONDANSETRON INJ 2 MG/ML 2 ML VIAL ONE (10:17)
[2023-04-29] MEDS: TRANEXAMIC ACID 1,000 MG **IV Intra-op IV SCH (11:07)
[2023-04-29] MEDS: ROPIV 0.5% 246mg, Ketorolac 30mg, EPINEPHrine 0.5mg in NSS INFIL SCH (11:07)
--- NOTE | 2023-04-29 11:09 | Operative Report ---
PG Post Operative Report Pre & Post Diagnosis Operation Date: 04/29/23 10:00 Pre-Op Diagnosis: Right Hip Degenerative Joint Disease Post-Op Diagnosis: Right Hip Degenerative Joint Disease I identified the patient and participated in the time-out.: Yes Procedure Operation Date: 04/29/23 10:00 Actual Procedures p Right Anterior Total Hip Arthroplasty(Right) - Irineo Byers DO Surgeon Irineo Byers DO Chemistry Department Chair Fuentes Cohen PA-C Estimated Blood Loss 250 Findings Consistent with Post-Op Diagnosis Specimens Right femoral head Description of Procedure Implants used I used a [employer]immer[employer]omet total hip arthroplasty system with a size 6.5 high offset Avenir Complete stem, a 50 mm G7 cup with a 25mm screw, an E1 polyethylene liner, a 36+3.5 mm ceramic head with a neck. Yanira arrived at the hospital for the above procedure. She was seen in the preoperative holding area and the operative extremity was identified and signed. She was given a spinal anesthetic, a preoperative antibiotic, and TXA. She was then taken back to the operating room and laid on the table in the supine position. She was given basic sedation. The operative leg was secured to a Puristst leg positioner. The hip was then prepped and draped in sterile fashion. A timeout was done and the patient and the operative extremity was properly identified. An anterior approach was used. Dissection was taken down through the fascia and the tensor muscle belly was retracted laterally and the rectus was retracted medially. The circumflex vessels were identified and ligated. The capsule was then incised and tagged for later repair. The femoral neck was then cut and the femoral head was removed. The acetabulum was exposed. Time was spent doing a complete circumferential labral release. Sequential reaming of the acetabulum up to a size 49 reamer was done. Final reamings were done under fluoroscopy to ensure appropriate version. A Biomet 50 mm G7 cup was then impacted into place. A single 25 mm screw was placed. The E1 polyethylene liner was then snapped into place. Surrounding soft tissues were then injected with 100 cc of an orthopedic pain control cocktail. The proximal femur was then exposed. Sequential broaching up to a size 6.5 broach was done. Off that broach a size 36 head with a +3.5 neck was trialed. The hip was reduced and fluoroscopic images showed anatomic alignment of the implants in acceptable length. The broach was removed. The final size 6.5 high offset Avenir Complete stem was then impacted into place. A ceramic 36 mm head with a +3.5 neck was then impacted onto the stem and the hip was reduced. Final fluoroscopic images showed anatomic alignment of the hip. The capsule was then closed with #1 Vicryl suture. A dilute betadyne lavage was then done for 3 minutes. The joint was then irrigated with normal saline solution. The fascia was closed with #1 PDS suture. Skin was closed with 2-0 Vicryl, keven, and a Silverlon dressing. She was then transferred to a hospital bed and taken to the post anesthesia care unit in stable condition. She tolerated the procedure well. Fuentes Cohen PA-C, was present for the entire procedure. He was critical for patient positioning, prepping, draping, retraction exposure, wound closure and application of sterile dressing. I attest to the content of the Intraoperative Record and any orders documented therein. Any exceptions are noted below.
--- NOTE | 2023-04-29 11:26 | Fluoroscopy Report ---
FL hip RT 1V CLINICAL HISTORY: RIGHT ANTERIOR HIP COMPARISON STUDY: Pelvis and right hip radiographs February 06, 2023. FLUOROSCOPY TIME: 18 seconds. Ka, r: 1.4907 mGy FLUOROSCOPIC IMAGES: 1 FINDINGS: Fluoroscopy was provided during anterior total right hip arthroplasty. Hardware is intact. There are no fractures. No unexpected radiopaque foreign bodies. There is an acetabular screw. IMPRESSION: Fluoroscopy provided during total right hip arthroplasty. ACT 112: Negative or not required by law. Electronically signed by: Olivier Matias M.D. 04/29/2023 11:25 AM
--- NOTE | 2023-04-29 12:10 | XRay Report ---
XR hip 1V RT w pelvis HISTORY: 72 years-old Female IN PACU - Post Surgical right hip arthroplasty COMPARISON: Fluoroscopic images of same day TECHNIQUE: AP view of the pelvis with crosstable lateral view of the right hip. FINDINGS: Unremarkable left hip arthroplasty. The right hip arthroplasty demonstrates satisfactory alignment wi th lateral skin keven, expected postoperative soft tissue swelling with deep tissue air. No acute f racture or unexpected opaque foreign body. IMPRESSION: Right hip arthroplasty with expected postoperative changes. ACT 112: Negative or not required by law. The above report was generated using voice recognition software. It may contain grammatical, syntax o r spelling errors. Electronically signed by: Matt Baker M.D. 04/29/2023 12:09 PM
--- NOTE | 2023-04-29 12:59 | Anesthesiology Progress Note ---
Date of Service April 29, 2023 Anesthesia Post Procedure Vital Signs Vital Signs: Temp Pulse Resp BP Pulse Ox O2 Del Method O2 Flow Rate 04/29/23 12:45 61 18 111/57 L 96 Room Air 04/29/23 12:35 62 14 114/62 97 Room Air 04/29/23 12:25 60 12 118/64 99 Room Air 04/29/23 12:15 62 14 116/68 97 Room Air 04/29/23 12:05 60 12 111/62 97 Room Air 04/29/23 11:55 66 16 110/66 97 Room Air 04/29/23 11:45 64 12 120/67 100 Oxymask 6 04/29/23 11:35 63 12 114/70 100 Oxymask 6 04/29/23 11:29 36.1 C L 74 14 108/72 97 Oxymask 6 04/29/23 08:37 36.4 C L 68 20 125/74 97 Room Air Transfer of Care Handoff Completed per policy Notes Mental Status: alert / awake / arousable Patient Amnestic to Procedure: Yes Nausea / Vomiting: adequately controlled Pain: adequately controlled Airway Patency, RR, SpO2: stable & adequate BP & HR: stable & adequate Hydration State: stable & adequate Neuraxial Anesthesia: was administered and sensory block is resolving Anesthetic Complications: no major complications apparent and Pt Satisfied with anesthetic care
[2023-04-29] MEDS ORDERED: NALOXONE HCL 0.4 MG/1 ML VIAL/CARP IV PRN (13:19)
[2023-04-29] MEDS ORDERED: MAGNESIUM HYDROXIDE SUSP 30 ML UDC PO PRN (13:19)
[2023-04-29] MEDS ORDERED: bisacodyL 10 MG SUPP PR PRN (13:19)
[2023-04-29] MEDS ORDERED: HYDROmorphone INJ 0.5 MG/0.5 ML SYR IV PRN (13:19)
[2023-04-29] MEDS ORDERED: METOCLOPRAMIDE HCL INJ 5 MG/ML 2 ML VIAL IV PRN (13:19)
[2023-04-29] MEDS ORDERED: ONDANSETRON INJ 2 MG/ML 2 ML VIAL IV PRN (13:19)
[2023-04-29] MEDS ORDERED: traMADol HCL 50 MG TABLET PO PRN (13:19)
[2023-04-29] MEDS: KETOROLAC TROMETHAMINE 15 MG/ML VIAL IV SCH (14:01)
[2023-04-29] MEDS: SODIUM CHLORIDE 0.9% 1,000 ML IV SCH (14:01)
[2023-04-29] MEDS: ceFAZolin 1000MG 1,000 MG/7.5 ML SYR IV SCH (18:04)
[2023-04-29] MEDS: ORTHO JOINT ANESTHETIC ONE (19:08)
[2023-04-29] MEDS: SENNA 8.6 MG TAB PO SCH (20:14)
[2023-04-29] MEDS: ASPIRIN 81 MG ECTAB PO SCH (20:15)
[2023-04-29] MEDS: DOCUSATE SODIUM 100 MG CAP PO SCH (20:15)
[2023-04-30] MEDS: LEVOTHYROXINE SODIUM 88 MCG TABLET PO SCH (05:05)
[2023-04-30] MEDS: MULTIVITAMIN TAB PO SCH (08:39)
[2023-04-30] MEDS: dexAMETHasone 4 MG TAB PO SCH (08:39)
--- NOTE | 2023-04-30 11:29 | Orthopedic Progress Note ---
Date of Service April 30, 2023 Assessment & Plan (1) Status post right hip replacement: Overall, she is doing quite well today with good pain control of the right hip. She will work with physical therapy later this morning to work on ambulation and range of motion exercises. She is on aspirin for DVT prophylaxis. She can be discharged home later this morning pending physical therapy evaluation. She will follow-up with orthopedics in 2 weeks for postoperative care. Subjective . Yanira was seen and evaluated today resting comfortably at bedside in no apparent distress. She notes that her pain is well-controlled to the right hip. She has yet to be seen by physical therapy this morning. She has been up and out of bed with no significant issues. She denies any other concerns today. Review of Systems All systems reviewed & are unremarkable except as noted in HPI & below. Physical Exam . On physical examination of the right lower extremity, her dressing is clean, dry, and intact. Her leg is out in full extension. She has active plantarflexion dorsiflexion of the right ankle. +2 DP and PT pulses. Less than 2-second capillary refill. Normal sensation. Neurovascular intact. Results & Data Results & Data Laboratory Results . Diagnostic Findings . Postoperative x-rays of the right hip show prosthesis to be anatomical alignment with no signs of fracture complication or loosening. PG Care Time/CCT Total # of Minutes Spent Total Time Spent with Patient: Total time spent is greater than 50% in coordination of care (as documented) at patient's floor/unit and/or counseling patient: Coding Level of Care Code 51376 Post Operative Follow-Up Diagnoses Status post right hip replacement Z96.641
--- NOTE | 2023-04-30 11:31 | Discharge Summary ---
Date of Service April 30, 2023 Admission HPI (Per Admitting) Yanira is a pleasant 72-year-old female who underwent a left hip replacement in December 2022. She has done very well with that. Unfortunately she is dealing with a lot of right hip pain. X-rays and clinical examination been diagnostic for advanced osteoarthritis of the right hip. After failing conservative treatment, she has elected to proceed with a right total hip arthroplasty.. Admission Exam (Per Admitting) On physical examination of the right hip, she has decreased range of motion. She has pain with forced internal and external rotation.. Principal Diagnosis Same as "Discharge Diagnosis" noted below under Discharge Instructions. Discharge Exam . On physical examination of the right lower extremity, her dressing is clean, dry, and intact. Her leg is out in full extension. She has active plantarflexion dorsiflexion of the right ankle. +2 DP and PT pulses. Less than 2-second capillary refill. Normal sensation. Neurovascular intact. Discharge Data Procedures Performed Operation Date: 04/29/23 10:00 Actual Procedures p Right Anterior Total Hip Arthroplasty(Right) - Irineo Byers DO Ordered Studies 04/29/23 10:00 FL hip RT 1V Routine Hospital Course (1) Status post right hip replacement: On April 29, 2023 Yanira arrived at [facility] and underwent a right anterior total hip arthroplasty performed by Dr. Byers with no complications. She had a spinal anesthetic. Postoperatively, she was started on aspirin for DVT prophylaxis and transferred to the general orthopedic floor in stable condition. Her hospital course was uneventful. On postoperative day #1, her vital signs were stable and her pain was well-controlled. She participated well with physical therapy working on ambulation and range of motion exercises. She was then discharged home in stable condition. She will follow-up with orthopedics in 2 weeks for postoperative care. PG Care Time/CCT Total # of Minutes Spent Total Time Spent with Patient: Total time spent is greater than 50% in coordination of care (as documented) at patient's floor/unit and/or counseling patient: Discharge Plan Discharge Items Patient Disposition: Home - Home Health Services Reason For Visit: Right Hip Degenerative Joint Disease Discharge Diagnosis: Same Activity: Per Instructions section Non-emergency contact: Surgeon Call non-emergency contact if: your temperature is above 101.5, your wound has increased redness, your wound has increased drainage and your wound pain has increased Follow-up/Referrals: Mateo Reed [Primary Care Provider] - Diet: Regular Addtl Attending Provider Instructions: Activity and Therapy Recommendations: * If you are using [facility] then therapy will be provided at your home until they feel you have accomplished all of your goals. * If you are using [facility] then Physical Therapy will be provided until they feel you are ready to start Outpatient Physical Therapy. * If you are not using home therapy then Outpatient Physical Therapy should start about 3-5 days from your day of surgery. Therapy will last about 6-10 weeks * You were shown a series of exercises in the hospital. Do these exercises three times each day including the exercises you were shown in physical therapy. * Get up and walk several times each day.~ For the first four weeks, try not to stand or walk for more than one hour at a time. If you do stand or walk for more than one hour, you will not hurt anything, but your leg will likely swell.~~ * As you feel comfortable, you may change from the walker or crutches to a cane and~then to independent walking. Medications: * Narcotic You will likely be sent home from the hospital with a prescription for the narcotic pain medication that worked best throughout your stay. * Cefadroxil -take the antibiotic twice a day for 10 days to help prevent infe * Aspirin Most patients will be required to take Aspirin 81mg twice a day for 6 weeks after surgery. This is obtained [id number] and a prescription is not necessary. * Other medications may be prescribed for specific circumstances. If you have any questions, please call the office at . * Resume previous home medications unless otherwise instructed TEDs/Elastic Stockings: The white elastic stockings help limit swelling and prevent blood clots from forming in your legs. The more you wear them, the more they work. Wear them for six weeks. Dressing Care: Leave the Silverlon dressing in place for 7 days. After 7 days you may remove the dressing. If the incision is not draining then you may leave the keven open to air. If there is a little bit of drainage or if the keven are getting stuck on your clothing then cover the incision with a dry dressing. The keven will be removed at your 2 week follow-up appointment. Showering: You may shower with the Silverlon dressing in place. Do not let the shower spray hit the dressing directly. Pat the Silverlon dressing dry. If the dressing becomes wet underneath, then simply remove the dressing. Keep the incision dry until you are 7 days out from the day of surgery. After 7 days you may remove the Silverlon dressing and shower with the keven exposed. Let soapy water run over the keven and pat them dry. Do not scrub or soak the incision. Things To Watch For: * Drainage from the incision site that occurs more than one week after your surgery. * Increased redness at the incision site. * Fever above 102 degrees Fahrenheit. * Unusual chest pain or shortness of breath. * Call [facility] at with any of the above problems Follow-Up Visit: Follow-up with Dr. Byers's PA (Irineo Mcdonough) 2-3 weeks after your day of surgery. He will remove your keven and answer any questions. If you have any additional questions or concerns, Dr Byers is usually in the office at the same time and will be available An appointment was probably scheduled when you signed-up for surgery in the office. If you have any questions call Office Instructions: More detailed instructions as well as Frequently Asked Questions were provided in a folder by our office when you signed-up for surgery. Please review these instructions when you get home. If you have any further questions or concerns, please feel free to call the o ffice at [phone] Pending Studies at Discharge: No Stand-Alone Forms: [facility], Smoking Cessation Medications and DC Order Prescriptions: New aspirin 81 mg Tablet,Delayed Release (Dr/Ec) 81 mg PO BID 42 Days Qty: 84 0RF tramadol 50 mg Tablet 50 mg PO Q6 PRN (Reason: pain) Qty: 30 0RF cefadroxil 500 mg capsule 500 mg PO BID 10 Days Qty: 20 0RF Continued (DME) [facility] See Rx Instructions .MEDSUPPLY Qty: 1 0RF Rx Instructions: As directed amoxicillin 500 mg tablet 2,000 mg PO ONCE Qty: 4 3RF Rx Instructions: 4 tabs 1 hour prior to procedure (DME) 3-in-1 Commode Misc See Rx Instructions .MEDSUPPLY Qty: 1 0RF Rx Instructions: As directed levothyroxine [Synthroid] 88 mcg tablet 88 mcg PO QAM Discontinued diclofenac sodium 75 mg tablet,delayed release (DR/EC) 75 mg PO BID Qty: 60 0RF Patient Comments: no longer taking 04/04/23 naproxen sodium [Aleve] 220 mg Tablet 220 mg PO Q8H PRN (Reason: Pain) aspirin 81 mg Tablet 81 mg PO DAILY tramadol 50 mg tablet 50 mg PO Q6H PRN (Reason: pain) Qty: 30 0RF Admission Data Admit Date/Time: 04/29/23 11:37 Attending Provider: Irineo Byers Admit Provider: Irineo Byers Primary Care Provider: Mateo Reed Other Providers: [facility],Home Healthcare Other Interventions: Discharge Summary Assessment (RN) Last Done: 04/30/23 09:15
== END 2023-04-30 10:23 | disposition home health service (06) ==
LOC: 3E 07:49 → ASU 07:49